=== PATIENT | female | born 1970 | race African-American/Black ===

== ENCOUNTER 2024-03-15 14:36 | Emergency (ER) | payer MEDICAID, OTHER ==
[~2024-03-15] VITALS: Ht 172.7 cm; Wt 70.0 kg
[2024-03-15 14:42] VITALS: O2SAT 100
[2024-03-15] MEDS: LORAZEPAM 2MG/ML INJ IM ONE (15:20)
[2024-03-15 16:25] LABS: CLARITY URINE CLEAR (CLEAR); COLOR URINE YELLOW (YELLOW); GLUCOSE URINE NEGATIVE (NEGATIVE); KETONES URINE NEGATIVE (NEGATIVE); LEUKOCYTE ESTERASE URINE NEGATIVE (NEGATIVE); NITRITE URINE NEGATIVE (NEGATIVE); OCCULT BLOOD URINE NEGATIVE (NEGATIVE); PH URINE 7.5 (4.5-8.0); PROTEIN URINE NEGATIVE (NEGATIVE); SPECIFIC GRAVITY URINE 1.005 (1.005-1.030); UROBILINOGEN URINE 0.2 E.U./dL (0.2-1.0)
[2024-03-15 16:50] LABS: CHLORIDE 109 mEq/L (98-107); SODIUM 142 mEq/L (136-145)
[2024-03-15 16:51] LABS: CARBON DIOXIDE 28 mEq/L (21-32)
[2024-03-15 16:52] LABS: CALCIUM 9.3 mg/dL (8.7-10.4)
[2024-03-15 16:56] LABS: CREATININE 0.8 mg/dL (0.6-1.0); GLUCOSE 103 mg/dL (70-105); UREA NITROGEN BLOOD 13 mg/dL (9-23)
[2024-03-15 16:59] LABS: TROPONIN I HIGH SENSITIVITY < 4 ng/L (3.0-34)
[2024-03-15 17:02] LABS: INR 0.9; PROTHROMBIN TIME 10.6 sec (9.6-11.0)
[2024-03-15 17:07] LABS: HCG SCREEN NEGATIVE
[2024-03-15 17:09] LABS: BASOPHILS % 0.8 % (0.0-2.0); EOSINOPHILS % 2.8 % (0.0-5.0); HEMATOCRIT. 38.8 % (36.0-48.0); HEMOGLOBIN. 12.4 g/dL (12.0-16.0); LYMPHOCYTES % 42.8 % (20.0-50.0); MEAN CORPUSCULAR HEMOGLOBIN 26.6 pg (28.0-32.0); MEAN CORPUSCULAR VOLUME 83.1 fL (81.0-99.0); MEAN PLATELET VOLUME 8.3 fl (7.4-10.4); MONOCYTES % 7.1 % (2.0-8.0); NEUTROPHILS % 46.5 % (40.0-76.0); PLATELET 235 x1000/uL (130-400); RED BLOOD CELL COUNT 4.66 mill/uL (4.2-5.4); RED CELL DISTRIBUTION WIDTH 13.4 % (11.6-14.6); WHITE BLOOD COUNT 3.6 x1000/uL (4.5-11.0)
[2024-03-15 17:25] VITALS: TEMP 36.83628
[2024-03-15 20:27] VITALS: BP 140/82; PULSE 62; RESP 18; O2SAT 100
== END 2024-03-15 20:28 | disposition home or self-care (01) ==
LOC: ER 14:49
DX: R56.9 Unspecified convulsions (principal); I10 Essential (primary) hypertension; E78.5 Hyperlipidemia, unspecified; E11.9 Type 2 diabetes mellitus without complications; G93.9 Disorder of brain, unspecified
CPT/HCPCS: 80048; 81003; 81025; 82962; 84703; 85025; 85610; 84484; 36415; 71045; 70450; 93005; 96372; 99285; J2060; Z7610 ×3